=== PATIENT | male | born 1990 | race Caucasian/White ===

== ENCOUNTER 2018-03-20 15:39 | Emergency (ER) | payer OTHER ==
--- NOTE | 2018-03-20 17:29 | RAD REPORT ---
EXAM DESCRIPTION: CT - Stone Protocol - 03/20/2018 5:23 pm CLINICAL HISTORY: Abdominal pain, flank pain COMPARISON: None. TECHNIQUE: Axial [address] imaging of the abdomen and pelvis was performed without IV contrast. No IV contrast was given because of allergy, abnormal renal function, patient refusal or physician re quest. Oral contrast was given. All CT scans are performed using dose optimization technique as appropriate and may include automated exposure control or mA/KV adjustment according to patient size. Axial 5 mm thick images were obtained without oral or IV contrast. The [id number] spans the entire ty of the system including uppermost abdomen and lung bases. FINDINGS: No suspicious findings in the lung bases. The liver, spleen and pancreas show no suspicious findings on non-contrast imaging. Gallbladder is pa rtially contracted. No biliary tree dilatation. Gallstones can be occult. No hydronephrosis or suspicious renal mass. No obstructing or nonobstructing calculi. No significant adrenal finding. Isodense renal masses and pyelonephritis cannot be excluded in the absence of IV con trast. The urinary bladder is without significant finding. Prostate gland and seminal vesicles within normal limits. No gastric dilatation or wall thickening. No dilated large or small bowel loops. Cecum and appendix a re low lying along the floor the pelvis. No appendicitis. No free air, free fluid or inflammatory str anding. No hernia, mass or bulky lymphadenopathy. Patient does have quite a few mesenteric lymph node s. No suspicious bony findings. IMPRESSION: Mesenteric adenitis or nonspecific enteritis pattern. No appendicitis or emergent CT finding. No evidence for an acute finding. Isodense masses and pyelonephritis are not excluded. Full assessment is limited is the absence of IV contrast.
[2018-03-20] MEDS ORDERED: NA CHLORIDE 0.9% 1,000 ML ONE (17:48)
[2018-03-20 18:01] LABS: Absolute Lymphocytes (CBC) 2.6 K/uL (0.7-4.9); Absolute Monocytes 1.1 K/uL (0.1-1.3); Absolute Neutrophil 5.1 K/uL (1.8-8.0); Basophils % 0.9 % (0-1.3); Eosinophils % 1.6 % (0-4.4); Hematocrit 44.4 % (39.6-49.0); Lymphocytes % 29.4 % (15.3-44.8); MCV 92.2 fL (80-100); MPV 10.7 fL (7.6-11.3); Monocytes % 11.7 % (3.3-12.3); RBC Red Blood Cell Count 4.82 M/uL (4.33-5.43)
[2018-03-20 18:09] LABS: Urine Bacteria <20 /HPF (NONE SEEN); Urine Culture Reflex Order NOT NEEDED
[2018-03-20] MEDS ORDERED: KETOROLAC 30 MG/ML INJ ONE (18:11)
[2018-03-20 18:22] LABS: Albumin 4.2 g/dL (3.4-5.0); Bilirubin Direct 0.1 mg/dL (0-0.2); Bilirubin Total 0.3 mg/dL (0.2-1.0); Potassium 3.6 mmol/L (3.5-5.1); Protein, Total 7.7 g/dL (6.4-8.2)
--- NOTE | 2018-03-20 18:47 | ER ---
Nurse's Notes [facility] Name: Shirley Carrillo III Age: 27 yrs Sex: Male : 1990 Arrival Date: 03/20/2018 Time: 15:41 Bed 15 Private MD: out of town, doctor Diagnosis: Low back pain-right;Pain localized to other parts of lower abdomen-right Presentation: 03/20 15:55 Presenting complaint: Right mid back pain that radiates to right lower abdomen and hb right groin x 1 week. Transition of care: patient was not received from another setting of care. Onset of symptoms was March 15, 2018. Risk Assessment: Do you want to hurt yourself or someone else? Patient reports no desire to harm self or others. Care prior to arrival: None. 15:55 Method Of Arrival: Ambulatory hb 15:55 Acuity: HAL 3 hb 19:33 Initial Sepsis Screen: Does the patient meet any 2 criteria? No. Patient's initial em sepsis screen is negative. Does the patient have a suspected source of infection? No. Patient's initial sepsis screen is negative. Historical: - Allergies: 15:57 Indomethacin; hb 15:57 tramadol; hb - Home Meds: 15:57 Omeprazole Oral [Active]; hb - PMHx: 15:57 GERD; hb - PSHx: 15:57 L ACL repair x 3; left clavicle repair; hb - Immunization history:: Adult Immunizations up to date. - Social history:: Smoking status: Patient/guardian denies using tobacco. - Ebola Screening: : No symptoms or risks identified at this time. Screenin:40 Abuse screen: Denies threats or abuse. Denies injuries from another. Nutritional sg screening: No deficits noted. Tuberculosis screening: No symptoms or risk factors identified. Never had TB. Fall Risk None identified. Assessment: 16:40 General: Appears in no apparent distress. comfortable, well groomed, well developed, sg well nourished, Behavior is calm, cooperative, appropriate for age. Pain: Complains of pain in abdomen Quality of pain is described as aching. Neuro: No deficits noted. Cardiovascular: Capillary refill is brisk in bilateral fingers Patient's skin is warm and dry. Chest pain is denied. Respiratory: Airway is patent Respiratory effort is even, unlabored, Respiratory pattern is regular, symmetrical, Breath sounds are clear. GI: Abdomen is round non-distended, Bowel sounds Abd is soft and non tender X 4 quads. Reports lower abdominal pain, nausea. : No signs and/or symptoms were reported regarding the genitourinary system. EENT: No signs and/or symptoms were reported regarding the EENT system. Derm: Skin is intact, is healthy with good turgor, Skin is dry, Skin is normal, Skin temperature is warm. Musculoskeletal: No signs and/or symptoms reported regarding the musculoskeletal system. 17:30 Reassessment: Patient appears in no apparent distress at this time. Patient and/or sg family updated on plan of care and expected duration. Pain level reassessed. Patient is alert, oriented x 3, equal unlabored respirations, skin warm/dry/pink. 18:11 Reassessment: Patient appears in no apparent distress at this time. Patient and/or sg family updated on plan of care and expected duration. Pain level reassessed. Patient is alert, oriented x 3, equal unlabored respirations, skin warm/dry/pink. pt reports a searing hot pain in the back, reports a 10/10. Orders received for Toradol 30 mg IVP, pt administered SEE EMAR. 19:34 Reassessment: Patient appears in no apparent distress at this time. Patient and/or em family updated on plan of care and expected duration. Pain level reassessed. Patient is alert, oriented x 3, equal unlabored respirations, skin warm/dry/pink. Patient states feeling better. Vital Signs: 15:56 BP 131 / 71; Pulse 72; Resp 16; Temp 98.7; Pulse Ox 100% on R/A; Weight 89.81 kg; hb Height 5 ft. 6 in. (167.64 cm); Pain 7/10; 15:56 Body Mass Index 31.96 (89.81 kg, 167.64 cm) hb ED Course: 15:41 Patient arrived in ED. mr 15:42 out of town, doctor is Private Physician. mr 15:56 Triage completed. hb 15:56 Arm band placed on left wrist. hb 16:32 Frank Jackson, RN is Primary Nurse. sg 16:40 No provider procedures requiring assistance completed. sg 16:50 Jaguar Maldonado PA is PHCP. cp 16:50 Giovany Zambrano MD is Attending Physician. cp 17:[address] via wheelchair. nj 17:22 CT completed. Patient tolerated procedure well. Patient moved back from CT. nj 17:23 CT Stone Protocol In Process Unspecified. EDMS 17:45 Initial lab(s) drawn, by me, sent to lab. Urine collected: clean catch specimen, clear, jp3 liliam colored, Amount Voided: 100mL. 17:53 Inserted saline lock: 20 gauge in right forearm, using aseptic technique. Blood jp3 collected. 17:54 Bed in low position. Call light in reach. Side rails up X 1. Warm blanket given. Pillow jp3 given. 17:54 Urine Microscopic Only Sent. jp3 17:54 Basic Metabolic Panel Sent. jp3 17:54 Creatinine for Radiology Sent. jp3 17:54 CBC with Diff Sent. jp3 17:54 Lipase Sent. jp3 17:54 Hepatic Function Sent. jp3 19:33 IV discontinued, intact, bleeding controlled, No redness/swelling at site. Pressure em dressing applied. Administered Medications: 17:48 Drug: NS 0.9% 1000 ml Route: IV; Rate: 1 bolus; Site: right antecubital; sg 18:50 Follow up: Response: No adverse reaction; IV Status: Completed infusion; IV Intake: sg 990ml 18:10 Drug: TORadol 30 mg Route: IVP; Site: right antecubital; sg 18:30 Follow up: Response: No adverse reaction; Pain is decreased sg 19:04 Not Given (Other Intervention Used): morphine 2 mg IVP once sg Intake: 18:50 IV: 990ml; Total: 990ml. sg Outcome: 18:47 Discharge ordered by MD. cp 19:33 Discharged to home ambulatory, with family. em 19:33 Condition: stable 19:33 Discharge instructions given to patient, family, Instructed on discharge instructions, follow up and referral plans. medication usage, Demonstrated understanding of instructions, follow-up care, medications, Prescriptions given X 1. 19:34 Patient left the ED. em Signatures: Dispatcher [employer] Frank Ordonez, RN SUMA pleitez SmallsSandie mr ChristensenArnel, WEIGHT YARDAGE CHECKER WEIGHT YARDAGE CHECKER em Jaguar Maldonado, Lana Galarza cp, RN RN hb Jordan, Nathan nj Pisarski, Jacob jp3
--- NOTE | 2018-03-20 18:47 | EDPHYS ---
Physician Documentation [facility] Name: Shirley Carrillo III Age: 27 yrs Sex: Male : 1990 Arrival Date: 03/20/2018 Time: 15:41 Bed 15 Private MD: out of town, doctor ED Physician Giovany Zambrano HPI: 03/20 17:00 This 27 yrs old Male presents to ER via Ambulatory with complaints of cp Abdominal Pain. 17:00 The patient presents with abdominal pain right lower quadrant. Onset: The cp symptoms/episode began/occurred 1 week(s) ago, started with right low back pain that radiated to right lower abdomen and right groin. Associated signs and symptoms: Pertinent negatives: nausea and vomiting, blood in stools, constipation, diarrhea, fever, headache, hematuria, testicular pain. The symptoms are described as waxing/waning. Patient reports he was sent from [place] to r/o appendicitis. Historical: - Allergies: 15:57 Indomethacin; hb 15:57 tramadol; hb - Home Meds: 15:57 Omeprazole Oral [Active]; hb - PMHx: 15:57 GERD; hb - PSHx: 15:57 L ACL repair x 3; left clavicle repair; hb - Immunization history:: Adult Immunizations up to date. - Social history:: Smoking status: Patient/guardian denies using tobacco. - Ebola Screening: : No symptoms or risks identified at this time. ROS: 17:05 Constitutional: Negative for body aches, chills, fever, poor PO intake. cp 17:05 Eyes: Negative for injury, pain, redness, and discharge. cp 17:05 ENT: Negative for drainage from ear(s), ear pain, sore throat, difficulty swallowing, difficulty handling secretions. 17:05 Cardiovascular: Negative for chest pain, edema, palpitations. 17:05 Respiratory: Negative for cough, shortness of breath, wheezing. 17:05 Abdomen/GI: Positive for abdominal pain, of the anterior aspect of right lateral abdomen and right lower quadrant, Negative for vomiting, diarrhea, constipation, black/tarry stool, rectal bleeding. 17:05 Back: Positive for pain at rest, pain with movement, of the right low back, Negative for injury or acute deformity. 17:05 : Negative for urinary symptoms, testicular pain 17:05 Skin: Negative for cellulitis, rash. 17:05 Neuro: Negative for altered mental status, headache, weakness. 17:05 All other systems are negative. Exam: 17:10 Constitutional: The patient appears in no acute distress, alert, awake, comfortable, cp non-toxic, well developed, well nourished. 17:10 Head/Face: Normocephalic, atraumatic. Eyes: Pupils equal round and reactive to light, cp extra-ocular motions intact. Lids and lashes normal. Conjunctiva and sclera are non-icteric and not injected. Cornea within normal limits. Periorbital areas with no swelling, redness, or edema. ENT: Nares patent. No nasal discharge, no septal abnormalities noted. Tympanic membranes are normal and external auditory canals are clear. Oropharynx with no redness, swelling, or masses, exudates, or evidence of obstruction, uvula midline. Mucous membranes moist. Chest/axilla: Normal chest wall appearance and motion. Nontender with no deformity. No lesions are appreciated. Cardiovascular: Regular rate and rhythm with a normal S1 and S2. No gallops, murmurs, or rubs. Normal PMI, no JVD. No pulse deficits. Respiratory: Lungs have equal breath sounds bilaterally, clear to auscultation and percussion. No rales, rhonchi or wheezes noted. No increased work of breathing, no retractions or nasal flaring. 17:10 Abdomen/GI: Inspection: abdomen appears normal, Bowel sounds: active, all quadrants, Palpation: soft, in all quadrants, mild abdominal tenderness, in the anterior aspect of right lateral abdomen and right lower quadrant, rebound tenderness, is not appreciated, voluntary guarding, is not appreciated, involuntary guarding, is not appreciated. 17:10 Back: pain, that is mild, of the right low back, ROM is normal, CVA tenderness, is absent, Straight leg raises: of both lower extremities does not illicit pain. 17:10 Skin: cellulitis, is not appreciated, no rash present. Vital Signs: 15:56 BP 131 / 71; Pulse 72; Resp 16; Temp 98.7; Pulse Ox 100% on R/A; Weight 89.81 kg; hb Height 5 ft. 6 in. (167.64 cm); Pain 7/10; 15:56 Body Mass Index 31.96 (89.81 kg, 167.64 cm) hb MDM: 16:50 Patient medically screened. cp 17:00 Differential diagnosis: appendicitis, diverticulitis, gastritis, Prostatitis, cp Pyelonephritis, Testicular Torsion, Ureterolithiasis, urinary tract infection. 18:45 Data reviewed: vital signs, nurses notes, lab test result(s), radiologic studies, CT cp scan. 18:45 Counseling: I had a detailed discussion with the patient and/or guardian regarding: the cp historical points, exam findings, and any diagnostic results supporting the discharge/admit diagnosis, lab results, radiology results, the need for outpatient follow up, a family practitioner, to return to the emergency department if symptoms worsen or persist or if there are any questions or concerns that arise at home. ED course: VSS. Labs and CT reviewed and negative for appendicitis. Will discharge to home for continued monitoring. 03/20 16:57 Order name: Basic Metabolic Panel; Complete Time: 18:38 cp 12 18:38 Interpretation: Normal except: CL 109; GFR 73. cp 03/20 16:57 Order name: CBC with Diff; Complete Time: 18:38 cp 03/20 16:57 Order name: Creatinine for Radiology; Complete Time: 18:38 cp 03/20 16:57 Order name: Hepatic Function; Complete Time: 18:38 cp 03/20 16:57 Order name: Lipase; Complete Time: 18:38 cp 03/20 16:57 Order name: Urine Microscopic Only; Complete Time: 18:38 cp 07 18:38 Interpretation: Normal except: URBC 5-10. cp 03/20 16:57 Order name: IV Saline Lock; Complete Time: 17:22 cp 03/20 16:57 Order name: Labs collected and sent; Complete Time: 17:22 cp 03/20 16:57 Order name: Urine Dipstick-Ancillary (obtain specimen); Complete Time: 17:49 cp 03/20 16:57 Order name: CT Stone Protocol; Complete Time: 17:32 cp 03/20 17:33 Interpretation: Report reviewed. cp Administered Medications: 17:48 Drug: NS 0.9% 1000 ml Route: IV; Rate: 1 bolus; Site: right antecubital; sg 18:50 Follow up: Response: No adverse reaction; IV Status: Completed infusion; IV Intake: sg 990ml 18:10 Drug: TORadol 30 mg Route: IVP; Site: right antecubital; sg 18:30 Follow up: Response: No adverse reaction; Pain is decreased sg 19:04 Not Given (Other Intervention Used): morphine 2 mg IVP once sg Disposition: 03/20/18 18:47 Discharged to Home. Impression: Low back pain - right, Pain localized to other parts of lower abdomen - right. - Condition is Stable. - Discharge Instructions: Abdominal Pain, Adult, Back Pain, Adult. - Prescriptions for Bentyl 20 mg Oral Tablet - take 1 tablet by ORAL route every 6 hours As needed; 20 tablet. - Medication Reconciliation Form, Thank You Letter, Antibiotic Education, Prescription Opioid Use form. - Follow up: Private Physician; When: 1 week; Reason: Recheck today's complaints. - Problem is new. - Symptoms have improved. Addendum: 03/24/2018 22:59 Co-signature as Attending Physician, Giovany Zambrano MD I agree with the assessment and k dr plan of care. Signatures: Dispatcher [employer] EDFrank Beltran RN RN sg Giovany Zambrano MD MD [facility] Arnel Christensen, CONTINUOUS LINTER DRIER OPERATOR CONTINUOUS LINTER DRIER OPERATOR em Jaguar Maldonado PA PA cp Lana Gamez, RN RN Corrections: (The following items were deleted from the chart) 03/20 19:34 18:47 03/20/2018 18:47 Discharged to Home. Impression: Low back pain - right; Pain em localized to other parts of lower abdomen - right. Condition is Stable. Forms are Medication Reconciliation Form, Thank You Letter, Antibiotic Education, Prescription Opioid Use. Follow up: Private Physician; When: 1 week; Reason: Recheck today's complaints. Problem is new. Symptoms have improved. cp
== END 2018-03-20 19:34 | disposition home or self-care (01) ==
LOC: ER 15:39
DX: M54.5 Low back pain (principal); K21.9 Gastro-esophageal reflux disease without esophagitis; Z88.6 Allergy status to analgesic agent; Z88.8 Allergy status to other drugs, medicaments and biological substances
CPT/HCPCS: 36415; 74176; 76377; 80048; 80076; 81015; 83690; 85025; 96361; 96374; 99284; J7030